=== PATIENT | male | born 1985 | race Caucasian/White ===

== ENCOUNTER → 2019-08-17 07:46 | Outpatient (CLI) | payer OTHER, SELFPAY ==
--- NOTE | 2019-08-17 | DI.MRI.S_ITS ---
PROCEDURE: MR ANKLE LT WO CON INDICATIONS: Left heel pain TECHNIQUE: Noncontrast sagittal T1 spin echo and T2 fast spin echo with fat saturation, axial proton density fast spin echo and T2 fast spin echo with fat saturation, coronal T1 spin echo and T2 fast spin echo with fat saturation through the ankle/hindfoot. COMPARISON: None. FINDINGS: Image quality: Excellent. Bones and joints: No bone marrow contusions or fractures. No hindfoot coalitions. No osteochondral injuries of the talar dome. No pathologic joint effusions. Medial structures: The posterior tibialis, flexor digitorum longus, and flexor hallucis longus tendons are intact. The posterior tibial neurovascular bundle appears normal within the tarsal tunnel, without extrinsic mass effect. The deep layer (anterior and posterior tibiotalar ligaments) and superficial layer (tibionavicular, tibiospring, and tibiocalcaneal ligaments) of the deltoid ligament appear normal. The spring ligament components (superomedial calcaneonavicular, medioplantar oblique calcaneonavicular, and inferoplantar longitudinal ligaments) are intact. Lateral structures: The anterior talofibular, calcaneofibular, and posterior talofibular ligaments appear intact. The calcaneofibular ligament is thickened without adjacent soft tissue edema. More superiorly, the anterior and posterior tibiofibular ligaments appear intact, as is the intermalleolar ligament. The tibiofibular syndesmosis is normal in width at 2 mm or less. The peroneus longus and brevis tendons demonstrate normal location. The peroneal longus tendon is thickened with increased internal signal. 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 Adjacent bony peroneal tubercle and retrotrochlear prominence are normal in size. The sinus tarsi demonstrates normal fatty signal, without edema, fibrosis, or cyst formation. Visualized sinus tarsi components (cervical ligament, interosseous talocalcaneal ligament, roots of the inferior extensor retinaculum) appear normal. The calcaneonavicular and calcaneocuboid components of the bifurcate ligament appear intact. The dorsal calcaneocuboid ligament appears intact. Anterior structures: The tibialis anterior, extensor hallucis longus, and extensor digitorum longus tendons appear intact. The dorsal talonavicular ligament appears intact. Posterior and plantar structures: Achilles tendon is intact. The medial band of the plantar fascia is thickened. There is calcaneal bone spurring at the calcaneal attachment of the radial band of the plantar fascia. Lateral band of the plantar fascia is normal in thickness. No abductor digiti quinti muscle atrophy to suggest Avila neuropathy. IMPRESSION: 1. Peroneal longus tendinosis. 2. Medial band plantar fasciitis with calcaneal bone spurring. Dictated by: Kim Hamlin MD, PhD on 08/17/2019 at 15:26 Approved by: Kim Hamlin MD, PhD on 08/19/2019 at 15:14
--- NOTE | 2019-08-17 | DI.MRI.S_ITS ---
PROCEDURE: MR ANKLE RT WO CON INDICATIONS: Right heel pain TECHNIQUE: Noncontrast sagittal T1 spin echo and T2 fast spin echo with fat saturation, axial proton density fast spin echo and T2 fast spin echo with fat saturation, coronal T1 spin echo and T2 fast spin echo with fat saturation through the ankle/hindfoot. COMPARISON: None. FINDINGS: Image quality: Excellent. Bones and joints: No bone marrow contusions or fractures. No hindfoot coalitions. No osteochondral injuries of the talar dome. No pathologic joint effusions. Medial structures: The posterior tibialis, flexor digitorum longus, and flexor hallucis longus tendons are intact. The posterior tibial neurovascular bundle appears normal within the tarsal tunnel, without extrinsic mass effect. The deep layer (anterior and posterior tibiotalar ligaments) and superficial layer (tibionavicular, tibiospring, and tibiocalcaneal ligaments) of the deltoid ligament appear normal. The spring ligament components (superomedial calcaneonavicular, medioplantar oblique calcaneonavicular, and inferoplantar longitudinal ligaments) are intact. Lateral structures: The anterior talofibular ligament is chronically torn. There is a small, chronic lateral malleolus avulsion fracture fragment. The calcaneofibular, and posterior talofibular ligaments appear intact. More superiorly, the anterior and posterior tibiofibular ligaments appear intact, as is the intermalleolar ligament. The tibiofibular syndesmosis is normal in width at 2 mm or less. The peroneus longus and brevis tendons demonstrate normal location and morphology. Adjacent bony peroneal tubercle and retrotrochlear prominence are normal in size. The sinus tarsi demonstrates normal fatty signal, without edema, fibrosis, or cyst formation. Visualized sinus tarsi components (cervical ligament, interosseous talocalcaneal ligament, roots of the inferior extensor retinaculum) appear normal. The calcaneonavicular and calcaneocuboid components of the bifurcate ligament appear intact. The dorsal calcaneocuboid ligament appears intact. Anterior structures: The tibialis anterior, extensor hallucis longus, and extensor digitorum longus tendons appear intact. The dorsal talonavicular ligament appears intact. Posterior and plantar structures: Achilles tendon is mildly thickened with slightly increased internal signal. There is thickening of the medial band of the plantar fascia at the calcaneal attachment. Calcaneal spurring and subchondral edema noted at the attachment of the medial band of the plantar fascia. Lateral band of the plantar fascia is normal in thickness. No abductor digiti quinti muscle atrophy to suggest Avila neuropathy. IMPRESSION: 1. 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 2. Medial band plantar fasciitis with adjacent reactive changes in calcaneal bone spurring. 3. Mild Achilles tendinitis. Dictated by: Kim Hamlin MD, PhD on 08/17/2019 at 12:55 Approved by: Kim Hamlin MD, PhD on 08/19/2019 at 15:14
== END ==
PROVIDERS: Visit Provider Podiatrist
DX: M79.671 Pain in right foot (principal); M79.672 Pain in left foot; S93.491A Sprain of other ligament of right ankle, initial encounter; M84.471A Pathological fracture, right ankle, initial encounter for fracture; M72.2 Plantar fascial fibromatosis; M76.61 Achilles tendinitis, right leg; M77.32 Calcaneal spur, left foot; M67.874 Other specified disorders of tendon, left ankle and foot; G89.29 Other chronic pain
CPT/HCPCS: 73721